=== PATIENT | female | born 2000 | race African-American/Black ===

== ENCOUNTER 2020-05-21 04:20 | Observation (INO) ==
[2020-05-21] MEDS ORDERED: ONDANSETRON INJ 2 MG/ML 2 ML VIAL IV STA (04:35)
[2020-05-21] MEDS ORDERED: SODIUM CHLORIDE 0.9% 1000ML 1,000 ML IV ONE (04:35)
[2020-05-21] MEDS ORDERED: ACETAMINOPHEN 1,000 MG/100 ML VIAL IV STA (04:35)
--- NOTE | 2020-05-21 04:38 | Emergency Department Note ---
History of Present Illness General Chief complaint: Abdominal Pain Stated complaint: ABD PAIN Time Seen by Provider: 05/21/20 04:27 History of Present Illness Maximum Pain Intensity: 10 This pleasant female who appears in pain presents to the ER complaining of abdominal pain Location: Lower abdomen Quality: Uncomfortable Severity: Moderate Duration: 1 day Timing: Started yesterday morning Context: Pain persisted and patient came in Modifying factors: better with rest; worse with palpation Patient also complains of nausea, vomiting and urinary symptoms. Patient denies chest pain, dyspnea, fevers, back pain, flulike illness, diarrhea. No prior surgeries. Home Medications Home Medications Medication Instructions Recorded Confirmed Type etonogestrel [Nexplanon] 68 mg SUBDERMAL CONTINOUS 05/21/20 05/21/20 History Allergies Allergy/AdvReac Type Severity Reaction Status Date / Time No Known Allergies Allergy Unverified 05/21/20 04:56 Past Med/Surg History Medical History No acute medical problems Surgical History No pertinent past surgical history Social History Smoking Status: Never smoker Feels Safe at Home: Yes Review of Systems A total of 10 systems reviewed and were otherwise negative Physical Exam Vital Signs Vital Signs - 24 hr 05/21/20 04:24 05/21/20 04:33 05/21/20 06:11 Temperature 36.7 C Temperature Source Oral Pulse Rate 99 H Pulse Rate [Finger] 99 H Respiratory Rate 20 18 Respiratory Effort / Characteristics Non-Labored Respiratory Depth Normal Blood Pressure 126/82 Blood Pressure [Right Arm] 144/95 H Blood Pressure Mean 96 Blood Pressure Mean [Right Arm] 111 Blood Pressure Position Sitting Pulse Oximetry 98 99 Oxygen Delivery Method Room Air Room Air Room Air Sepsis Recent Fever Within 48 Hours No Sepsis New/Unexplained Change in Mental Status N/A Sepsis Action Taken by Nursing No Action Required VITALS: Vitals are noted on the nurse's note and reviewed by myself. Vital signs stable. GENERAL: Pleasant female ambulating without difficulties, in no acute distress, nondiaphoretic, well-developed well-nourished. SKIN: Capillary reflex less than 2 seconds. HEENT: Normocephalic. PERRLA. EOMI. Nares patent. Mucous membranes moist. Neck is supple without nuchal rigidity. HEART: Regular rate and rhythm without murmurs gallops or rubs. LUNGS: Clear to auscultation bilaterally without wheezes, rales or rhonchi. No retractions or accessory muscle use. ABDOMEN: Positive bowel sounds x 4. Normal tympanic percussion. Soft, tender to palpation right lower abdomen, without masses or organomegaly. Cardenas sign negative. No guarding or rebound tenderness. No CVA tenderness MUSCULOSKELETAL: No gross musculoskeletal defects. NEURO: Patient was alert and oriented to person place and time. No focal neurological deficits. Course Administered Medications Discontinued Medications Acetaminophen (Ofirmev) 1,000 mg in 100 mls @ 400 mls/hr IV NOW STA Stop: 05/21/20 04:49 Last Infusion: 05/21/20 05:21 Dose: 0 mls/hr Documented by: [id number] Admin: 05/21/20 04:49 Dose: 400 mls/hr Documented by: [id number] Sodium Chloride (Nss 1000ml) 1,000 mls @ 999 mls/hr IV .Q1H1M ONE Stop: 05/21/20 05:35 Last Infusion: 05/21/20 06:09 Dose: 0 mls/hr Documented by: [id number] Admin: 05/21/20 04:49 Dose: 999 mls/hr Documented by: [id number] Cefoxitin Sodium (Mefoxin) 2,000 mg in 60 mls @ 100 mls/hr IV NOW STA Stop: 05/21/20 06:18 Last Infusion: 05/21/20 06:35 Dose: 0 mls/hr Documented by: [id number] Admin: 05/21/20 05:59 Dose: 100 mls/hr Documented by: [id number] Ioversol (Ioversol 100ml) 100 ml IV ONCE ONE Stop: 05/21/20 05:03 Last Admin: 05/21/20 05:03 Dose: 92 ml Documented by: [id number] Ondansetron HCl (Ondansetron Inj 2 Mg/Ml 2 Ml Vial) 4 mg IV NOW STA Stop: 05/21/20 04:36 Last Admin: 05/21/20 04:49 Dose: 4 mg Documented by: [id number] Medical Decision Making Medical Records Attestation: I reviewed the patient's medical records. Home Medications Current Medication List: was personally reviewed by me Laboratory Data Attestation: I reviewed the patient's lab results. Result diagrams: 05/21/20 04:50 05/21/20 04:50 Lab Results 05/21/20 05/21/20 05/21/20 Range/Units 04:35 04:50 04:50 WBC 13.72 H (4.8-10.8) K/uL RBC 5.23 (4.2-5.4) M/uL Hgb 15.3 (12.0-16.0) g/dL POC Hgb (12.0-16.0) g/dl Hct 43.8 (37-47) % POC Hct (37-47) % MCV 83.7 (80-100) fL MCH 29.3 (25-34) pg MCHC 34.9 (32-36) g/dL RDW Std Deviation 39.0 (36.4-46.3) fL RDW Coeff of Cecil 12.9 (11.5-14.5) % Plt Count 228 (130-400) K/uL MPV 10.5 H (7.4-10.4) fL Immature Gran % (Auto) 0.3 % Neut % (Auto) 81.3 % Lymph % (Auto) 12.0 % [place] % (Auto) 6.2 % Eos % (Auto) 0.1 % Baso % (Auto) 0.1 % Neut # (Auto) 11.14 H (1.4-6.5) K/uL Lymph # (Auto) 1.65 (1.2-3.4) K/uL [place] # (Auto) 0.85 H (0.11-0.59) K/uL Eos # (Auto) 0.02 (0-0.5) K/uL Baso # (Auto) 0.02 (0-0.2) K/uL Immature Gran # (Auto) 0.04 H (0.00-0.02) K/uL POC Sodium (135-144) mmol/L Sodium 141 (136-145) mmol/L POC Potassium (3.3-5.0) mmol/L Potassium 3.5 (3.5-5.1) mmol/L POC Chloride (101-112) mmol/L Chloride 107 (98-107) mmol/L Carbon Dioxide 29 (21-32) mmol/L POC Total CO2 (24-31) mmol/L Anion Gap 5.0 (3-11) POC Anion Gap (16-25) mmol/L POC BUN (7-18) mg/dl BUN 11 (7-18) mg/dl Creatinine 0.97 (0.6-1.2) mg/dl POC Creatinine (0.6-1.3) mg/dl Est Cr Clr Drug Dosing 95.8 ml/min Est GFR ( Amer) 96.8 Est GFR (Non-Af Amer) 83.5 BUN/Creatinine Ratio 11.0 (10-20) Glucose 113 H (70-99) mg/dl POC Glucose (other) (70-99) mg/dl Calcium 9.6 (8.5-10.1) mg/dl POC Ioniz Calcium Selvin (1.12-1.32) mmol/l Total Bilirubin 0.5 (0.2-1) mg/dl AST 26 (15-37) U/L ALT 47 (12-78) U/L Alkaline Phosphatase 82 (45-117) U/L Total Protein 8.5 H (6.4-8.2) gm/dl Albumin 4.1 (3.4-5.0) gm/dl Globulin 4.4 H (2.5-4.0) gm/dl Albumin/Globulin Ratio 0.9 (0.9-2) HCG, Qual (Negative) Urine Color Yellow Urine Appearance Cloudy A (Clear) Urine pH 5.5 (4.5-7.5) Ur Specific [place] 1.023 (1.000-1.030) Urine Protein Negative (Negative) Urine Glucose (UA) Negative (Negative) Urine Ketones Negative (Negative) Urine Blood 3+ H (Negative) Urine Nitrite Negative (Negative) Urine Bilirubin Negative (Negative) Urine Urobilinogen Negative (Negative) Ur Leukocyte Esterase 2+ H (Negative) Urine WBC (Auto) 10-30 H (0-5) /hpf Urine RBC (Auto) 0-4 (0-4) /hpf U Hyaline Cast (Auto) 0 (0-5) /lpf U Epithel Cells (Auto) >30 H (0-5) /lpf Urine Bacteria (Auto) 2+ H (Negative) Urine Yeast Not Reportable 05/21/20 05/21/20 Range/Units 04:50 04:58 WBC (4.8-10.8) K/uL RBC (4.2-5.4) M/uL Hgb (12.0-16.0) g/dL POC Hgb 16.0 (12.0-16.0) g/dl Hct (37-47) % POC Hct 47 (37-47) % MCV (80-100) fL MCH (25-34) pg MCHC (32-36) g/dL RDW Std Deviation (36.4-46.3) fL RDW Coeff of Cecil (11.5-14.5) % Plt Count (130-400) K/uL MPV (7.4-10.4) fL Immature Gran % (Auto) % Neut % (Auto) % Lymph % (Auto) % [place] % (Auto) % Eos % (Auto) % Baso % (Auto) % Neut # (Auto) (1.4-6.5) K/uL Lymph # (Auto) (1.2-3.4) K/uL [place] # (Auto) (0.11-0.59) K/uL Eos # (Auto) (0-0.5) K/uL Baso # (Auto) (0-0.2) K/uL Immature Gran # (Auto) (0.00-0.02) K/uL POC Sodium 141 (135-144) mmol/L Sodium (136-145) mmol/L POC Potassium 3.4 (3.3-5.0) mmol/L Potassium (3.5-5.1) mmol/L POC Chloride 104 (101-112) mmol/L Chloride (98-107) mmol/L Carbon Dioxide (21-32) mmol/L POC Total CO2 24 (24-31) mmol/L Anion Gap (3-11) POC Anion Gap 18.0 (16-25) mmol/L POC BUN 10 (7-18) mg/dl BUN (7-18) mg/dl Creatinine (0.6-1.2) mg/dl POC Creatinine 0.8 (0.6-1.3) mg/dl Est Cr Clr Drug Dosing ml/min Est GFR ( Amer) Est GFR (Non-Af Amer) BUN/Creatinine Ratio (10-20) Glucose (70-99) mg/dl POC Glucose (other) 119 H (70-99) mg/dl Calcium (8.5-10.1) mg/dl POC Ioniz Calcium Selvin 1.23 (1.12-1.32) mmol/l Total Bilirubin (0.2-1) mg/dl AST (15-37) U/L ALT (12-78) U/L Alkaline Phosphatase (45-117) U/L Total Protein (6.4-8.2) gm/dl Albumin (3.4-5.0) gm/dl Globulin (2.5-4.0) gm/dl Albumin/Globulin Ratio (0.9-2) HCG, Qual Negative (Negative) Urine Color Urine Appearance (Clear) Urine pH (4.5-7.5) Ur Specific [place] (1.000-1.030) Urine Protein (Negative) Urine Glucose (UA) (Negative) Urine Ketones (Negative) Urine Blood (Negative) Urine Nitrite (Negative) Urine Bilirubin (Negative) Urine Urobilinogen (Negative) Ur Leukocyte Esterase (Negative) Urine WBC (Auto) (0-5) /hpf Urine RBC (Auto) (0-4) /hpf U Hyaline Cast (Auto) (0-5) /lpf U Epithel Cells (Auto) (0-5) /lpf Urine Bacteria (Auto) (Negative) Urine Yeast Imaging Data Attestation: I personally reviewed and interpreted this imaging study as follows: Blood Pressure Blood Pressure Findings: Normal blood pressure MDM Narrative Prior records/ancillary studies reviewed. Triage Nursing notes reviewed. The patient's history was concerning for abdominal pain. Differential diagnosis: Etiologies such as appendicitis, diverticulitis, PUD, biliary pathology, UTI, pancreatitis, obstruction, mesenteric ischemia, aortic pathology, infections, inflammatory bowel disease, renal colic, as well as others were entertained. Physical examination findings: As above. ER treatment provided: An order was placed for continuous cardiac monitoring. The monitor shows a rate of 60-100 with a sinus rhythm. IV fluids, Zofran, Tylenol, Mefoxin On reassessment the patient felt better. Diagnostics interpreted by me: The labs revealed leukocytosis, negative hCG Imaging studies: CT ABDOMEN & PELVIS With Contrast: Impression: The appendix is dilated, measuring up to 1.5 cm in diameter. Calcified appendicolith seen at the base of the appendix. These findings are suggestive of acute appendicitis. No periappendiceal abscess or free air. 4 cm diameter cyst seen in the right suprarenal region could represent an exophytic renal cortical cyst. Radiologist: Albino Paez MD Study ready at 05:22 and initial results transmitted at 05:42 Communications: Clear Time Type Notes Call Doctor Appendicitis Consultation: A consultation was placed with the surgeon Dr. Fontaine. The case was discussed and diagnostics were reviewed. The patient was evaluated in the ER for further treatment. Exam and history seem consistent with appendicitis. Patient started on antibiotics. She was placed n.p.o. She last ate at 8 PM last night. She last drank at 4 AM. Patient is agreeable treatment plan of admission. Surgery will evaluate the patient. By the evaluation outlined above emergent etiologies such as diverticulitis, PUD, biliary pathology, UTI, pancreatitis, obstruction, mesenteric ischemia, aortic pathology, inflammatory bowel disease, renal colic, as well as others were deemed relatively unlikely. The pt informed about the findings as listed above. All questions were answered and pleased with the treatment. The chart was completed utilizing [email or web address] Speech voice recognition software. Grammatical errors, random word insertions, pronoun errors, and incomplete sentences are an occassional consequence of this system due to software limitations, ambient noise, and hardware issues. Any formal questions or concerns about the content, text, or information contained within the body of this dictation should be directly addressed to the physician school psychologist assistant for clarification. Impression & Plan Acute appendicitis Discharge Plan Visit Data Chief Complaint: Abdominal Pain Stated Complaint: ABD PAIN ED Provider: Fransisca Carl ED Midlevel Provider: Bella Garcia Discharge Problem: Acute appendicitis Patient Disposition: Being Evaluated by Surgeon Condition: Good Prescriptions Prescriptions: No Action Nexplanon 68 mg Implant 68 mg SUBDERMAL CONTINOUS RF: 0 Referrals Referrals: PCP,NO [Primary Care Provider] - Discharge Problem: Acute appendicitis Qualifiers: Acute appendicitis type: with localized peritonitis Appendicitis gangrene presence: unspecified whether gangrene present Appendicitis perforation presence: without perforation Appendicitis abscess presence: without abscess Qualified Code(s): K35.30 - Acute appendicitis with localized peritonitis, without perforation or gangrene
[2020-05-21 05:01] LABS: Basophils # (auto) 0.02 K/uL (0-0.2); Basophils % (auto) 0.1 %; Eosinophils # (auto) 0.02 K/uL (0-0.5); Eosinophils % (auto) 0.1 %; Hematocrit (blood only) 43.8 % (37-47); Hemoglobin 15.3 g/dL (12.0-16.0); Immature Granulocytes # (auto) 0.04 K/uL (0.00-0.02); Immature Granulocytes % (auto) 0.3 %; Lymphocytes # (auto) 1.65 K/uL (1.2-3.4); Mean Corpuscular Hemoglobin 29.3 pg (25-34); Mean Corpuscular Hgb Conc 34.9 g/dL (32-36); Mean Corpuscular Volume 83.7 fL (80-100); Mean Platelet Volume 10.5 fL (7.4-10.4); Monocytes # (auto) 0.85 K/uL (0.11-0.59); Monocytes % (auto) 6.2 %; Neutrophils # (auto) 11.14 K/uL (1.4-6.5); Neutrophils % (auto) 81.3 %; Platelet Count 228 K/uL (130-400); RDW Coefficient of Variation 12.9 % (11.5-14.5); Red Blood Count 5.23 M/uL (4.2-5.4); White Blood Count 13.72 K/uL (4.8-10.8)
[2020-05-21] MEDS ORDERED: IOVERSOL 100ml IV ONE (05:02)
[2020-05-21 05:10] LABS: iSTAT Creatinine 0.8 mg/dl (0.6-1.3); iSTAT Ionized Calcium 1.23 mmol/l (1.12-1.32); iSTAT Potassium 3.4 mmol/L (3.3-5.0)
[2020-05-21 05:11] LABS: Appearance Urine Cloudy (Clear); Bacteria Urine Automated 2+ (Negative); Bilirubin Urine Negative (Negative); Blood Urine 3+ (Negative); Color Urine Yellow; Epithelial Cell Urine Auto >30 /lpf (0-5); Glucose Urine UA Negative (Negative); Ketones Urine Negative (Negative); Leukocyte Esterase Urine 2+ (Negative); Nitrite Urine Negative (Negative); Protein Urine Negative (Negative); RBC Urine Automated 0-4 /hpf (0-4); Specific Gravity Urine 1.023 (1.000-1.030); Urobilinogen Urine Negative (Negative); pH Urine 5.5 (4.5-7.5)
[2020-05-21 05:19] LABS: Pregnancy Test, Serum Negative (Negative)
[2020-05-21 05:20] LABS: Albumin Level 4.1 gm/dl (3.4-5.0); Calcium 9.6 mg/dl (8.5-10.1); Creatinine Clr Calc Pharmacy 95.8 ml/min; Est GFR (African American) 96.8; Est GFR (Non-African American) 83.5; Potassium 3.5 mmol/L (3.5-5.1)
[2020-05-21 05:23] LABS: Albumin Globulin Ratio 0.9 (0.9-2); Bilirubin,Total 0.5 mg/dl (0.2-1); Globulin 4.4 gm/dl (2.5-4.0); Total Protein 8.5 gm/dl (6.4-8.2)
[2020-05-21 05:28] LABS: Cast Urine Automated 0 /lpf (0-5)
[2020-05-21] MEDS ORDERED: cefOXitin 2,000 MG/60 ML BAG IV STA (05:43)
[2020-05-21] MEDS ORDERED: MoRPHine SULFATE 4 MG/ML 1 ML CARP\\VIAL IV STA (07:33)
--- NOTE | 2020-05-21 07:36 | Emergency Department Note ---
ED Visit Note I was approached by the ED RN after shift change requesting pain medication for the patient. I did review the chart. Pt. was found to have acute appendicitis on CT imaging. She had received IV fluids, zofran, tylenol, and mefoxin. An order was placed for IV Morphine. Pt. is awaiting evaluation by surgeon at this time. : Acute appendicitis Qualifiers: Acute appendicitis type: with localized peritonitis Appendicitis gangrene presence: unspecified whether gangrene present Appendicitis perforation presence: without perforation Appendicitis abscess presence: without abscess Qualified Code(s): K35.30 - Acute appendicitis with localized peritonitis, without perforation or gangrene
--- NOTE | 2020-05-21 07:43 | CT Scan Report ---
ABDOMEN AND PELVIS CT WITH IV CONTRAST CT DOSE: 680.62 mGy.cm HISTORY: Acute right lower quadrant abdominal pain rlq pain TECHNIQUE: Multiaxial CT images of the abdomen and pelvis were performed following the IV administrat ion of 92 cc of Optiray 320, A dose lowering technique was utilized adhering to the principles of [place] PEPITO. COMPARISON STUDY: None. FINDINGS: Clear lung bases. There is no pneumatosis or pneumoperitoneum. The imaged inferior cardiac chambers are unremarkable. The spleen, pancreas and left adrenal gland are unremarkable. The right ad renal gland suboptimally visualized. Unremarkable gallbladder. Liver is within normal limits. Patency of the hepatic and portal veins. Normal enhancement of the kidneys. Cystic structure posterior to th e right hepatic lobe measuring up to 3.8 cm is suggestive of an exophytic superior pole right renal c yst. Moderate bladder wall thickening with partial distention. Uterus is unremarkable. Follicular abelino nges of the ovaries. Aorta and IVC are unremarkable. There is no adenopathy. There is no bowel obstruction. There is a 7 mm appendicolith within the proximal appendix. The append ix is fluid-filled and dilated measuring up to 10 mm with mucosal hyperemia and periappendiceal stran ding. No perforation or abscess. Soft tissues are unremarkable. Bones appear intact. IMPRESSION: 1. Findings compatible with acute uncomplicated appendicitis with appendicolith. Surgical consultatio n is needed. 2. No bowel obstruction, pneumoperitoneum or drainable fluid collection. ACT 112: Negative or not required by law. The above report was generated using voice recognition software. It may contain grammatical, syntax o r spelling errors. Electronically signed by: Marquez Pardo M.D. 05/21/2020 7:42 AM
--- NOTE | 2020-05-21 07:58 | History & Physical Report ---
Date of Service May 21, 2020 Assessment & Plan (1) Acute appendicitis: Discussed options. Recommend laparoscopic possible open appendectomy. Discussed the risks which would include bleeding, infection, staple line leak, abscess, injury to another organ such as bowel or ureter, DVT, PE, NC, CVA etc. Following all this I answered her questions. We will proceed this morning urgently with a laparoscopic possible open appendectomy. Acute appendicitis type: with localized peritonitis Appendicitis abscess presence: without abscess Appendicitis gangrene presence: unspecified whether gangrene present Appendicitis perforation presence: without perforation Qualified Code(s): K35.30 - Acute appendicitis with localized peritonitis, without perforation or gangrene Admission and Anticipated Discharge Date Admission Date: History of Present Illness Primary Care Provider: NO PCP 19-year-old female with a 2-day history of abdominal pain. Worsened last evening. Work-up in the emergency room reveals acute appendicitis. Allergies Allergy/AdvReac Type Severity Reaction Status Date / Time No Known Allergies Allergy Unverified 05/21/20 04:56 Home Medications Home Medications Medication Instructions Recorded Confirmed Type etonogestrel [Nexplanon] 68 mg SUBDERMAL CONTINOUS 05/21/20 05/21/20 History Past Med/Surg History Medical History No acute medical problems Surgical History No pertinent past surgical history Social History Smoking Status: Never smoker Feels Safe at Home: Yes Review of Systems All systems reviewed & are unremarkable except as noted in HPI & below Physical Exam Constitutional: WD/WN, vitals as above no acute distress and not ill appearing Eyes: PERRL, conjunctivae normal, anicteric sclerae EOM intact bilaterally ENMT: external ear and nose normal, oropharynx normal Ears: no hearing impairment Neck: trachea midline, no thyromegaly Respiratory: normal respiratory effort; no respiratory distress and does not use accessory muscles Cardiovascular: Rate/Rhythm: regular rate and regular rhythm Gastrointestinal (Abdomen): Soft nontender. Positive right lower quadrant tenderness. Positive guarding. Positive Rovsing's Skin: no rashes, warm and dry Psychiatric: Orientation: alert, oriented x 3 and cooperative Results & Data ([facility]) Vital Signs (Past 12 Hours) Vital Signs Temp Pulse Pulse Resp BP BP Pulse Ox 05/21/20 07:11 104 H 20 149/87 H 99 05/21/20 06:11 99 H 18 144/95 H 99 05/21/20 04:24 36.7 C 99 H 20 126/82 98
--- NOTE | 2020-05-21 08:32 | Anesthesiology Consultation ---
Date of Service May 21, 2020 Assessment & Plan (1) Encounter for pre-operative examination: Chart Review Chart Review: Acceptable Risk for Surgery and Patient NOT seen in Pre Admission Testing Consults Requested none ASA [id number] Proposed Anesthesia Anesthesia Type: General Risk / Benefits Reviewed With: PT / POA / Parent / Guardian, Accepts Plan and Informed Consent Obtained History Surgery Operation Date: 05/21/20 08:20 Proposed Procedures p Laparoscopic Appendectomy - Porfirio Fontaine, DO Height/Weight Height: 5 ft 4 in Weight: 83.4 kg Allergies Allergy/AdvReac Type Severity Reaction Status Date / Time No Known Allergies Allergy Unverified 05/21/20 04:56 Medications Home Medications Medication Instructions Recorded Confirmed Last Taken etonogestrel [Nexplanon] 68 mg SUBDERMAL CONTINOUS 05/21/20 05/21/20 Unknown NPO Date Last Intake of Fluids: 05/21/20 Time Last Intake of Fluids: 04:00 Last Intake of Fluids Comment: water Date Last Intake of Solids: 05/20/20 Time Last Intake of Solids: 21:00 Past Medical History Medical History No significant past medical history Exercise / Class Metabolic Activity II 4-5 Yardwork/Stairs/Walk up hill Negative for chest pain or shortness of breath. Past Surgical History Surgical History (Updated 05/21/20 @ 08:46 by Ginger Morgan MD) H/O wisdom tooth extraction Past Anesthesia History No Hx of Anesthesia Complications and No Family Hx of Anesthesia Complications History of PONV No Hx of PONV and No Hx of Motion Sickness Social History Smoking Status: Never smoker Do You Dip or Chew Tobacco: No Hx Alcohol Use: No Alcohol type: wine alcohol intake frequency: a few times a month Hx Substance Use: No Review of Systems Patient denies active symptoms of GERD. Physical Exam Vital Signs Last Vital Signs Temp 36.7 C 05/21/20 04:24 Pulse 110 H 05/21/20 08:17 Resp 20 05/21/20 08:17 BP 147/89 H 05/21/20 08:17 Pulse Ox 97 05/21/20 08:17 Constitutional not obese ENMT Mouth: no TMJ abnormality and oral opening not small Thyromental Distance: > or= 3.5 Finger Breadths Mallampati Class: II Neck normal visual inspection; neck extension not limited Respiratory normal respiratory effort Auscultation: lungs clear to auscultation bilaterally Cardiovascular Rate/Rhythm: regular rate and regular rhythm Heart Sounds: no murmur Neurologic moves all extremities Psychiatric Orientation: alert and oriented x 3 Testing Laboratory Results 05/21/20 04:50 05/21/20 04:50 Urine Color Yellow 05/21/20 04:35 Urine Appearance Cloudy (Clear) A 05/21/20 04:35 Urine pH 5.5 (4.5-7.5) 05/21/20 04:35 Ur Specific [place] 1.023 (1.000-1.030) 05/21/20 04:35 Urine Protein Negative (Negative) 05/21/20 04:35 Urine Glucose (UA) Negative (Negative) 05/21/20 04:35 Urine Ketones Negative (Negative) 05/21/20 04:35 Urine Nitrite Negative (Negative) 05/21/20 04:35 Ur Leukocyte Esterase 2+ (Negative) H 05/21/20 04:35 Urine WBC (Auto) 10-30 /hpf (0-5) H 05/21/20 04:35 Urine RBC (Auto) 0-4 /hpf (0-4) 05/21/20 04:35 U Hyaline Cast (Auto) 0 /lpf (0-5) 05/21/20 04:35 U Epithel Cells (Auto) >30 /lpf (0-5) H 05/21/20 04:35 Urine Bacteria (Auto) 2+ (Negative) H 05/21/20 04:35 05/21/20 04:58 POC Glucose (other) 119 H
[2020-05-21] MEDS ORDERED: EPINEPHrine INJ 1 MG/ML AMP ONE (08:45)
[2020-05-21] MEDS ORDERED: BUPIVACAINE 0.5 % 5 MG/1 ML MPF 30ML VIAL ONE (08:45)
[2020-05-21] MEDS ORDERED: ATROPINE SULFATE 0.1 MG/ML 10ML SYR IV PRN (08:47)
[2020-05-21] MEDS ORDERED: ONDANSETRON INJ 2 MG/ML 2 ML VIAL IV PRN ×2 (08:47→10:12)
[2020-05-21] MEDS ORDERED: ePHEDrine sulfate 50 MG/ML AMP IV PRN (08:47)
[2020-05-21] MEDS ORDERED: HYDROmorphone INJ 1 MG/ML SYRINGE IV PRN (08:47)
[2020-05-21] MEDS ORDERED: fentaNYL citrate 100 MCG/2 ML VIAL IV PRN (08:47)
[2020-05-21] MEDS ORDERED: PROPOFOL IV EMULSION 10 MG/ML 20 ML VIAL IV ONE (08:49)
[2020-05-21] MEDS ORDERED: ROCURONIUM BROMIDE 10 MG/ML 5 ML VIAL IV ONE (08:49)
[2020-05-21] MEDS ORDERED: LIDOCAINE HCL 2% 2 ML VIAL/AMP(20MG/ML) INFIL ONE (08:49)
[2020-05-21] MEDS ORDERED: MIDAZOLAM HCL 1 MG/ML 2ML VIAL ONE (08:49)
[2020-05-21] MEDS ORDERED: fentaNYL citrate 100 MCG/2 ML VIAL ONE (08:49)
[2020-05-21] MEDS ORDERED: ONDANSETRON INJ 2 MG/ML 2 ML VIAL ONE (09:44)
[2020-05-21] MEDS ORDERED: PHENYLEPHRINE 100MCG/ML 5ML SYR ONE (09:44)
[2020-05-21] MEDS ORDERED: GLYCOPYRROLATE 0.2 MG/ML VIAL ONE (09:44)
[2020-05-21] MEDS ORDERED: NEOSTIGMINE METHYLSULFATE 5 MG/5 ML SYR ONE (09:44)
[2020-05-21] MEDS ORDERED: SUCCINYLCHOLINE CHLORIDE 20 MG/ML 10 ML VIAL IV ONE (09:44)
--- NOTE | 2020-05-21 10:05 | Operative Report ---
PG Post Operative Report Pre & Post Diagnosis Operation Date: 05/21/20 08:20 Pre-Op Diagnosis: Acute appendicitis Post-Op Diagnosis: Acute appendicitis I identified the patient and participated in the time-out.: Yes Procedure Operation Date: 05/21/20 08:20 Actual Procedures p Laparoscopic Appendectomy - Porfirio Fontaine DO Surgeon Porfirio Fontaine DO Tool And Die Maker doreen Stanton Estimated Blood Loss 5 Findings Consistent with Post-Op Diagnosis Specimens appendix Description of Procedure .After informed consent was obtained the patient was taken to the operating room and placed in supine position. After successful intubation a Hughes catheter was placed and the left arm was tucked. I began by making a periumbilical incision with an 11 blade scalpel and carried this down through the soft tissue using electrocautery. The anterior rectus fascia was opened using electrocautery and 2 #0 Vicryl stay sutures were placed. The peritoneum was elevated using hemostats and incised under direct vision using a Metzenbaum scissor. A finger sweep was performed. A 12 mm Ortega trocar was placed and the abdomen was insufflated to 18 mmHg. A laparoscope was inserted and the abdomen was examined in 360. A suprapubic 5 mm port and a left lower quadrant 12 mm port were placed under direct vision. The patient was air planed to the left as well as placed in a slight Trendelenburg position. We began by looking in the right lower quadrant. We were able to readily identify the appendix and it was grossly inflamed. It had not perforated. There is a small amount of purulent fluid in the right lower quadrant and the pelvis. We immediately irrigated and suctioned this out. I was able to use primarily blunt dissection to pull the appendix away from the right lower quadrant sidewall. After mobilizing the appendix, I made a small window in the mesoappendix. I was then able to use a ANNIE brown cartridge stapler to transect both the mesentery of the appendix as well as the appendix itself at its base with the cecum. It took 1 firing for the base of the appendix and 2 separate firings for the mesoappendix. It was then placed into an Endo Catch bag and removed from the camera port site. We thoroughly irrigated the right lower quadrant as well as the pelvis. There was adequate hemostasis. I ran the small bowel backwards from the terminal ileum for about 6 feet all of which was normal. All the peritoneal surfaces were normal. Small/ large bowel, liver, stomach etc. all appeared grossly normal. We did a final irrigation and then removed all the trochars and desufflated the abdomen. The fascia of the camera port as well as the left lower quadrant were closed using 0 Vicryl in [id number] fashion. Wounds were all irrigated and closed using 4-0 Monocryl. Marcaine was injected around them for postoperative analgesia and skin glue used as a dressing. The patient was awakened extubated and transferred to recovery in stable condition. My physician's certified surgical tech/first assistant was present through the entire case. he assisted with prepping the patient and helped with exposure for port placement, helped run the camera and helped with fascial/wound closure at the end of the procedure as well as dressing placement. I attest to the content of the Intraoperative Record and any orders documented therein. Any exceptions are noted below. I attest to the content of the Intraoperative Record and any orders documented therein. Any exceptions are noted below.
[2020-05-21] MEDS ORDERED: IBUPROFEN 600 MG TAB PO PRN (10:12)
[2020-05-21] MEDS ORDERED: MoRPHine SULFATE 4 MG/ML 1 ML CARP\\VIAL IV PRN (10:12)
[2020-05-21] MEDS ORDERED: MoRPHine SULFATE 2 MG/ML CARP IV PRN (10:12)
[2020-05-21] MEDS ORDERED: SODIUM CHLORIDE 0.9% 1000ML 1,000 ML IV SCH (10:15)
--- NOTE | 2020-05-21 11:08 | Anesthesiology Progress Note ---
Date of Service May 21, 2020 Anesthesia Post Procedure Vital Signs Vital Signs: Temp Pulse Pulse Pulse Resp BP BP 05/21/20 11:00 36.8 C 77 23 114/51 L 05/21/20 10:50 83 24 108/68 05/21/20 10:40 80 24 126/62 05/21/20 10:30 75 21 121/66 05/21/20 10:20 37.1 C 87 19 121/73 05/21/20 08:36 36.8 C 113 H 20 138/94 05/21/20 08:17 110 H 20 147/89 H 05/21/20 07:11 104 H 20 149/87 H 05/21/20 06:11 99 H 18 144/95 H 05/21/20 04:24 36.7 C 99 H 20 126/82 Pulse Ox 05/21/20 11:00 100 05/21/20 10:50 100 05/21/20 10:40 100 05/21/20 10:30 100 05/21/20 10:20 100 05/21/20 08:36 99 05/21/20 08:17 97 05/21/20 07:11 99 05/21/20 06:11 99 05/21/20 04:24 98 Pain Intensity Abdomen: Pain Intensity: 4 Transfer of Care Handoff Completed per policy Notes Mental Status: alert / awake / arousable and participated in evaluation Patient Amnestic to Procedure: Yes Nausea / Vomiting: adequately controlled Pain: adequately controlled Airway Patency, RR, SpO2: stable & adequate BP & HR: stable & adequate Hydration State: stable & adequate Anesthetic Complications: no major complications apparent and Pt Satisfied with anesthetic care
[2020-05-21] MEDS: HYDROCODONE/ACETAMOPHEN 5/325MG TAB PO PRN ×3 (12:22→23:23)
[2020-05-21] MEDS ORDERED: KETOROLAC 30 MG/ML VIAL ONE (12:52)
[2020-05-21] MEDS ORDERED: KETOROLAC 30 MG/ML VIAL IV PRN (14:47)
[2020-05-21] MEDS ORDERED: NON-FORMULARY MEDICATION (Etonogestrel [Nexplanon] 68 MG) SUBD SCH (14:47)
[2020-05-22] MEDS: HYDROCODONE/ACETAMOPHEN 5/325MG TAB PO PRN (05:13)
[2020-05-22 06:10] LABS: Basophils # (auto) 0.01 K/uL (0-0.2); Basophils % (auto) 0.1 %; Eosinophils # (auto) 0.06 K/uL (0-0.5); Eosinophils % (auto) 0.7 %; Hematocrit (blood only) 37.8 % (37-47); Hemoglobin 12.8 g/dL (12.0-16.0); Immature Granulocytes # (auto) 0.01 K/uL (0.00-0.02); Immature Granulocytes % (auto) 0.1 %; Lymphocytes # (auto) 2.22 K/uL (1.2-3.4); Lymphocytes % (auto) 24.4 %; Mean Corpuscular Hemoglobin 28.7 pg (25-34); Mean Corpuscular Hgb Conc 33.9 g/dL (32-36); Mean Corpuscular Volume 84.8 fL (80-100); Mean Platelet Volume 10.8 fL (7.4-10.4); Monocytes # (auto) 0.99 K/uL (0.11-0.59); Monocytes % (auto) 10.9 %; Neutrophils # (auto) 5.82 K/uL (1.4-6.5); Neutrophils % (auto) 63.8 %; Platelet Count 214 K/uL (130-400); RDW Coefficient of Variation 13.2 % (11.5-14.5); RDW Standard Deviation 40.7 fL (36.4-46.3); Red Blood Count 4.46 M/uL (4.2-5.4); White Blood Count 9.11 K/uL (4.8-10.8)
--- NOTE | 2020-05-23 07:43 | Discharge Summary ---
Date of Service May 23, 2020 Admission HPI Per Admitting Provider 19-year-old female with a 2-day history of abdominal pain. Worsened last evening. Work-up in the emergency room reveals acute appendicitis. Principal Diagnosis Acute appendicitis Discharge Exam Constitutional WD/WN, vitals as above Gastrointestinal (Abdomen) Inspection/Auscultation: + abdominal surgical incision (clean, dry) Percussion/Palpation: abdomen soft; abdomen nontender Discharge Data Allergies Allergy/AdvReac Type Severity Reaction Status Date / Time No Known Allergies Allergy Unverified 05/21/20 04:56 Procedures Performed Operation Date: 05/21/20 08:20 Actual Procedures p Laparoscopic Appendectomy - Porfirio Fontaine DO Ordered Studies 05/21/20 04:33 CT abd pelvis IV con only Urgent Hospital Course (1) Acute appendicitis: 19 y/o female presented to the ER with abdominal pain. White count was 13,[address] was consistent with acute appendicitis with appendicolith. She was taken to the operating room for laparoscopic appendectomy. She had moderate postop pain and a fever and transferred to the surgical floor for overnight observation. In the morning she was able to advance diet and tolerate oral analgesics. She was afebrile overnight and white count had normalized. She was stable for discharge home. Total Time Total Time Spent Total Time Spent (In Minutes): 15 Discharge Plan Discharge Items Patient Disposition: Home - Self-Care Reason For Visit: APPENDICITIS Discharge Diagnosis: appendicitis Condition on Discharge: Good Activity: As commented below Lifting: No more than 10 pounds Bathing Comment: may shower. no tub baths Exercise/Sports: Wait until after follow-up appointment Non-emergency contact: Surgeon Call non-emergency contact if: you have any medication questions, your pain is not controlled, your pain is worsening, your pain is concerning for you, your temperature is above 101, your wound has increased redness and your wound has increased drainage Follow-up/Referrals: Porfirio Fontaine DO [Surgeon] - 06/05/20 11:00 am (Call the office to make an appointment in 1-2 weeks) PCP,NO [Primary Care Provider] - Diet: Regular Addtl Attending Provider Instructions: may use ice to the incisions. may use ibuprofen 600 mg every 6 hours for discomfort. the skin glue is waterproof, you can let the water run over it in the shower Pending Studies at Discharge: Yes Studies:: pathology report Stand-Alone Forms: Anesthesia/Sedation, Adult, My [facility] Medications and DC Order Prescriptions: New hydrocodone-acetaminophen [Mccaskill] 5-325 mg tablet 1 tab PO Q8H PRN (Reason: pain) Qty: 20 RF: 0 Continued Nexplanon 68 mg Implant 68 mg SUBDERMAL CONTINOUS RF: 0 Discharge Orders: Discharge Order (Routine); Ordered 05/22/20 Ordered By: Rishabh Ross/Other Patient Handouts: DVT Post Op Prevention Admission Data Admit Date/Time: 05/21/20 14:47 Attending Provider: Porfirio Fontaine Admit Provider: Porfirio Fontaine Primary Care Provider: PCP,NO Other Interventions: Discharge Summary Assessment (RN) Last Done: 05/22/20 08:28 Coding Level of Care Code D/C Day Management <30 mins Diagnoses Acute appendicitis K35.30 Acute appendicitis type: with localized peritonitis Appendicitis abscess presence: without abscess Appendicitis gangrene presence: unspecified whether gangrene present Appendicitis perforation presence: without perforation
== END 2020-05-22 10:14 | disposition home or self-care (01) ==
LOC: ED 04:20 → ASU 08:30 → 3N 08:30
DX: K35.80 Unspecified acute appendicitis